=== PATIENT | male | born 1955 | race African-American/Black ===

== ENCOUNTER 2017-05-03 02:28 | Inpatient (IN) | payer MEDICARE ==
[~2017-05-03] VITALS: Ht 175.3 cm; Wt 90.7 kg
[~2017-05-03 02:28] MED LIST: AMOX-263 PO; ASPI81CH43 PO; BACIOIN4 TOP; CALCTAB25 PO; CITA-73 PO; CLON1TAB3 PO; DIVA500T7 PO; DOCU-80 PO; LACT10SO44 PO; METO50TA7 PO; PANT40TA2 PO; QUET200T44 PO; RISP0.5T45 PO; RIV15T PO; SACC250C PO; SIMV-8 PO; TRAZ100T2 PO
[2017-05-03 03:51] LABS: Basophils # (auto) 0 uL; Basophils % (auto) 0.3 % (0.0-2.0); Eosinophils # (auto) 0 uL; Eosinophils % (auto) 0.1 % (0.0-7.0); Hematocrit 44.3 % (41.0-53.0); Hemoglobin 14.9 g/dL (13.5-17.5); Lymphocytes # (auto) 0.9 uL; Lymphocytes % (auto) 10.7 % (10.0-50.0); Mean Corpuscular Hemoglobin 30.2 pg (28.0-32.0); Mean Corpuscular Hgb Conc. 33.8 g/dL (32.0-36.0); Mean Corpuscular Volume 89.5 fL (80.0-100.0); Monocytes # (auto) 0.8 uL; Monocytes % (auto) 9.9 % (0.0-12.0); Neutrophils # (auto) 6.4 uL; Nucleated Red Blood Cells % 0.1 %; Platelet Count (auto) 202 10^3/uL (140-450); Red Blood Cells 4.95 10^6/uL (4.5-5.90); Red Cell Distribution Width 13.7 % (11.8-14.3); White Blood Cell 8.2 10^3/uL (4.4-10.8)
[2017-05-03 04:01] LABS: INR 1.01 (0.9-1.15); Partial Thromboplastin Time 26.6 sec (22.64-33.71)
[2017-05-03 04:03] LABS: Albumin 3.4 g/dL (3.4-5.0); Anion Gap 4 (5-15); Calcium 9.3 mg/dL (8.5-10.1); Carbon Dioxide 34 mmol/L (21-32); Chloride 103 mmol/L (98-107); Glucose 90 mg/dL (74-106); Lipase 416 U/L (73-393); Potassium 4.8 mmol/L (3.5-5.1); Sodium 141 mmol/L (136-145)
[2017-05-03 04:12] LABS: Alanine Aminotransferase 23 U/L (16-61); Alkaline Phosphatase 74 U/L (45-117); Aspartate Aminotransferase 25 U/L (15-37); BUN/Creatinine Ratio 16.5; Bilirubin, Total 0.6 mg/dL (0.2-1.0); Blood Urea Nitrogen 17 mg/dL (7-18); GFR African American 94 mL/min; GFR Non-African American 78 mL/min; Total Protein 7.8 g/dL (6.4-8.2)
[2017-05-03 06:03] LABS: Urine Bacteria FEW /hpf (None Seen); Urine Blood Negative /uL (Negative); Urine Hyaline Cast FEW /lpf (0 - 2); Urine Specific Gravity 1.025 (1.001-1.035); Urine WBC 4 /hpf (0 - 3); Urine WBC Clumps PRESENT /hpf (None Seen)
[2017-05-03] MEDS ORDERED: GASTROGRAFIN 120 ML SOL ONE (08:40)
[2017-05-03] MEDS ORDERED: SODIUM CHLORIDE 0.9% 1,000 ML IV SCH (11:45)
[2017-05-03] MEDS ORDERED: ONDANSETRON HCL 4 MG/2 ML VIAL IV PRN (11:45)
[2017-05-03] MEDS ORDERED: MORPHINE SULFATE 4 MG/ML SYR/VIAL IV PRN (11:45)
[2017-05-03] MEDS ORDERED: PANTOPRAZOLE 40 MG/10 ML VIAL IV ONE ×2 (11:45→12:15)
[2017-05-03] MEDS ORDERED: traMADol HCL 50 MG TAB PO PRN (11:45)
[2017-05-03] MEDS ORDERED: LACTULOSE 20Gm/30ML SOLN PO ONE ×2 (11:45→12:15)
[2017-05-03] MEDS ORDERED: METOPROLOL SUCCINATE XL 50 MG TAB PO ONE (12:15)
[2017-05-03] MEDS ORDERED: ASPirin 81 mg TAB PO ONE (12:15)
[2017-05-03] MEDS ORDERED: CALCIUM W/VIT D (600MG/400IU) TAB PO ONE (12:15)
[2017-05-03] MEDS ORDERED: CITALOPRAM HYDROBR 20 MG TAB PO ONE (12:15)
[2017-05-03] MEDS: risperiDONE 1 MG TAB PO SCH ×2 (13:45→22:58)
[2017-05-03] MEDS: QUEtiapine FUMARATE 100 MG TAB PO SCH ×2 (13:45→22:58)
[2017-05-03] MEDS: SODIUM CHLORIDE 0.9% 1,000 ML IV SCH (14:30)
[2017-05-03] MEDS ORDERED: cefTRIAXone 1GM/10ml IVPUSH 10 ML IV ONE (14:30)
[2017-05-03] MEDS: RIVAROXABAN 20 MG TAB PO SCH (18:00)
[2017-05-03 22:00] VITALS: BP_SYST 109; BP_SYST 113; BP_DIAS 74; BP_DIAS 77
[2017-05-03] MEDS ORDERED: LACTULOSE 20Gm/30ML SOLN PO SCH (22:00)
[2017-05-03] MEDS: ATORVASTATIN 20 MG TAB PO SCH (22:58)
[2017-05-04] VITALS (8 sets, daily range): BP systolic 94–115; BP diastolic 54–89
[2017-05-04] MEDS: SODIUM CHLORIDE 0.9% 1,000 ML IV SCH (04:58)
[2017-05-04] MEDS: METOPROLOL SUCCINATE XL 50 MG TAB PO SCH (10:00)
[2017-05-04] MEDS ORDERED: PANTOPRAZOLE 40 MG/10 ML VIAL IV SCH (10:00)
[2017-05-04 10:22] LABS: Basophils # (auto) 0 uL; Basophils % (auto) 0.5 % (0.0-2.0); Eosinophils # (auto) 0.1 uL; Eosinophils % (auto) 1.5 % (0.0-7.0); Hemoglobin 11.9 g/dL (13.5-17.5); Lymphocytes # (auto) 1.5 uL; Lymphocytes % (auto) 20.5 % (10.0-50.0); Mean Corpuscular Hgb Conc. 33.1 g/dL (32.0-36.0); Mean Corpuscular Volume 90.4 fL (80.0-100.0); Monocytes # (auto) 0.6 uL; Monocytes % (auto) 8.6 % (0.0-12.0); Neutrophils % (auto) 68.9 % (37.0-80.0); Nucleated Red Blood Cells % 0.1 %; Platelet Count (auto) 155 10^3/uL (140-450); Red Blood Cells 3.98 10^6/uL (4.5-5.90); Red Cell Distribution Width 13.7 % (11.8-14.3); White Blood Cell 7.3 10^3/uL (4.4-10.8)
[2017-05-04 10:38] LABS: Albumin 2.7 g/dL (3.4-5.0); Calcium 8.3 mg/dL (8.5-10.1); Potassium 4.4 mmol/L (3.5-5.1)
[2017-05-04 10:40] LABS: BUN/Creatinine Ratio 20.7
[2017-05-04 10:42] LABS: Bilirubin, Total 0.3 mg/dL (0.2-1.0); Total Protein 6.2 g/dL (6.4-8.2)
[2017-05-04] MEDS: ASPirin 81 mg TAB PO SCH (11:21)
[2017-05-04] MEDS: cefTRIAXone 1GM/10ml IVPUSH 10 ML IV SCH (11:21)
[2017-05-04] MEDS: CITALOPRAM HYDROBR 20 MG TAB PO SCH (11:21)
[2017-05-04] MEDS: risperiDONE 1 MG TAB PO SCH ×2 (11:22→22:00)
[2017-05-04] MEDS: CALCIUM W/VIT D (600MG/400IU) TAB PO SCH (11:22)
[2017-05-04] MEDS: RIVAROXABAN 20 MG TAB PO SCH (17:54)
[2017-05-04] MEDS: QUEtiapine FUMARATE 100 MG TAB PO SCH (22:00)
[2017-05-04] MEDS: ATORVASTATIN 20 MG TAB PO SCH (22:00)
[2017-05-04] MEDS: LACTULOSE 20Gm/30ML SOLN PO SCH (22:00)
[2017-05-05] VITALS (7 sets, daily range): BP systolic 109–155; BP diastolic 53–95
[2017-05-05] MEDS: LACTULOSE 20Gm/30ML SOLN PO SCH ×2 (10:00→22:00)
[2017-05-05] MEDS ORDERED: PANTOPRAZOLE 40 MG TAB PO SCH (10:00)
[2017-05-05] MEDS: cefTRIAXone 1GM/10ml IVPUSH 10 ML IV SCH (10:31)
[2017-05-05] MEDS: CALCIUM W/VIT D (600MG/400IU) TAB PO SCH (10:32)
[2017-05-05] MEDS: CITALOPRAM HYDROBR 20 MG TAB PO SCH (10:32)
[2017-05-05] MEDS: METOPROLOL SUCCINATE XL 50 MG TAB PO SCH (10:32)
[2017-05-05] MEDS: risperiDONE 1 MG TAB PO SCH ×2 (10:33→21:29)
[2017-05-05] MEDS: ASPirin 81 mg TAB PO SCH (17:43)
[2017-05-05] MEDS: RIVAROXABAN 20 MG TAB PO SCH (18:47)
[2017-05-05] MEDS: QUEtiapine FUMARATE 100 MG TAB PO SCH (21:28)
[2017-05-05] MEDS: ATORVASTATIN 20 MG TAB PO SCH (21:29)
== END 2017-05-05 21:55 | disposition home or self-care (01) | DRG 393 ==
LOC: EDBD 02:28 → ER 02:28 → OVERFLOW 02:29 → WEST WING 17:52
PROVIDERS: ADMIT Internal Medicine; ATTEND Internal Medicine
DX: K42.0 Umbilical hernia with obstruction, without gangrene (principal); K85.91 Acute pancreatitis with uninfected necrosis, unspecified; I48.91 Unspecified atrial fibrillation; I11.0 Hypertensive heart disease with heart failure; F03.90 Unspecified dementia, unspecified severity, without behavioral disturbance, psychotic disturbance, mood disturbance, and anxiety; I50.32 Chronic diastolic (congestive) heart failure; I25.2 Old myocardial infarction; G40.909 Epilepsy, unspecified, not intractable, without status epilepticus; K56.41 Fecal impaction; J44.9 Chronic obstructive pulmonary disease, unspecified; K21.9 Gastro-esophageal reflux disease without esophagitis; Z79.899 Other long term (current) drug therapy; Z86.73 Personal history of transient ischemic attack (TIA), and cerebral infarction without residual deficits; Z79.82 Long term (current) use of aspirin
CPT/HCPCS: 36415; 71045; 74176; 74250; 80053; 80164; 81001; 82150; 83690; 83735; 84484; 85025; 85610; 85730; 87081; 87086; 93005; 96374; 96375; 97163; C9113

== ENCOUNTER 2017-09-05 10:30 | Inpatient (IN) | payer MEDICARE ==
[~2017-09-05] VITALS: Ht 177.8 cm; Wt 92.9 kg
[~2017-09-05 10:30] MED LIST changes: -AMOX-263 PO; -SACC250C PO
[2017-09-05 12:30] LABS: Basophils # (auto) 0 uL; Basophils % (auto) 0.2 % (0.0-2.0); Eosinophils # (auto) 0 uL; Eosinophils % (auto) 0.1 % (0.0-7.0); Hemoglobin 14.2 g/dL (13.5-17.5); Lymphocytes # (auto) 0.6 uL; Lymphocytes % (auto) 7.4 % (10.0-50.0); Mean Corpuscular Hemoglobin 30.9 pg (28.0-32.0); Mean Corpuscular Hgb Conc. 33.8 g/dL (32.0-36.0); Mean Corpuscular Volume 91.4 fL (80.0-100.0); Monocytes # (auto) 0.4 uL; Monocytes % (auto) 4.5 % (0.0-12.0); Neutrophils # (auto) 7.1 uL; Neutrophils % (auto) 87.8 % (37.0-80.0); Platelet Count (auto) 153 10^3/uL (140-450); Red Cell Distribution Width 13.3 % (11.8-14.3); White Blood Cell 8.1 10^3/uL (4.4-10.8)
[2017-09-05 13:15] LABS: Albumin 3.9 g/dL (3.4-5.0); BUN/Creatinine Ratio 18.1; Bilirubin, Total 0.5 mg/dL (0.2-1.0); Calcium 9.6 mg/dL (8.5-10.1); Magnesium 2.2 mg/dL (1.6-2.6); Potassium 4.3 mmol/L (3.5-5.1); Total Protein 8.3 g/dL (6.4-8.2)
[2017-09-05] MEDS ORDERED: LACTULOSE 20Gm/30ML SOLN PO PRN (13:30)
[2017-09-05] MEDS ORDERED: LACTULOSE 20Gm/30ML SOLN PO ONE (13:30)
[2017-09-05] MEDS ORDERED: GASTROGRAFIN 120 ML SOL ONE (13:43)
[2017-09-05] MEDS ORDERED: MORPHINE SULF INJ 2 MG/ML SYRINGE 1ML IV PRN (13:45)
[2017-09-05] MEDS ORDERED: TEMAZEPAM 15 MG CAP PO PRN (13:45)
[2017-09-05] MEDS ORDERED: cloNIDine HCL 0.1 MG TAB PO PRN (13:45)
[2017-09-05] MEDS ORDERED: NITROGLYCERIN 0.4 MG SL TAB SL PRN (13:45)
[2017-09-05] MEDS ORDERED: HYDROcodone-ACET 5/325MG TAB PO PRN (13:45)
[2017-09-05] MEDS ORDERED: DOCUSATE SOD 100 MG CAP PO PRN (13:45)
[2017-09-05] MEDS ORDERED: ONDANSETRON HCL 4 MG/2 ML VIAL IV PRN (13:45)
[2017-09-05] MEDS ORDERED: clonazePAM 0.5 MG TAB PO PRN (13:45)
[2017-09-05] MEDS ORDERED: ACETAMINOPHEN 325 MG TAB PO PRN (13:45)
[2017-09-05] MEDS ORDERED: LORazepam 2MG/ML-1ML VIAL IV PRN (14:00)
[2017-09-05] MEDS: SODIUM CHLOR 0.9% PF (SALINE LOCK) 10ML VIAL/SYR IV SCH ×2 (14:05→22:00)
[2017-09-05] MEDS ORDERED: RIVAROXABAN 15 MG TAB PO SCH (18:00)
[2017-09-05] MEDS: risperiDONE 1 MG TAB PO SCH (22:36)
[2017-09-05] MEDS: QUEtiapine FUMARATE 100 MG TAB PO SCH (22:36)
[2017-09-05] MEDS: ATORVASTATIN 20 MG TAB PO SCH (22:37)
[2017-09-05] MEDS: FAMOTIDINE 20 MG TAB PO SCH (22:37)
[2017-09-05] MEDS: traZODone HCL 50 MG TAB PO SCH (22:37)
[2017-09-05] MEDS: PANTOPRAZOLE 40 MG TAB PO SCH (22:37)
[2017-09-06 05:11] VITALS: BP 138/92
[2017-09-06] MEDS: SODIUM CHLOR 0.9% PF (SALINE LOCK) 10ML VIAL/SYR IV SCH ×3 (06:07→22:10)
[2017-09-06] MEDS: VALPROIC ACID 250 MG/5 ML ORAL SOLN GT SCH ×3 (06:48→22:10)
[2017-09-06 07:48] LABS: Basophils # (auto) 0 uL; Basophils % (auto) 0.2 % (0.0-2.0); Eosinophils # (auto) 0 uL; Eosinophils % (auto) 0.4 % (0.0-7.0); Hematocrit 38.4 % (41.0-53.0); Lymphocytes # (auto) 1.6 uL; Lymphocytes % (auto) 19.7 % (10.0-50.0); Mean Corpuscular Volume 91.3 fL (80.0-100.0); Monocytes # (auto) 0.8 uL; Monocytes % (auto) 9.7 % (0.0-12.0); Neutrophils # (auto) 5.7 uL; Nucleated Red Blood Cells % 0.1 %; Platelet Count (auto) 142 10^3/uL (140-450); Red Blood Cells 4.21 10^6/uL (4.5-5.90); Red Cell Distribution Width 13.3 % (11.8-14.3); White Blood Cell 8.1 10^3/uL (4.4-10.8)
[2017-09-06 08:05] LABS: Albumin 3.3 g/dL (3.4-5.0); BUN/Creatinine Ratio 21.9; Bilirubin, Total 0.5 mg/dL (0.2-1.0); Potassium 4.1 mmol/L (3.5-5.1); Total Protein 7.1 g/dL (6.4-8.2)
[2017-09-06 08:45] VITALS: BP 126/92
[2017-09-06] MEDS: METOPROLOL SUCCINATE XL 50 MG TAB PO SCH (09:44)
[2017-09-06] MEDS: PANTOPRAZOLE 40 MG TAB PO SCH ×2 (09:44→22:11)
[2017-09-06] MEDS: risperiDONE 1 MG TAB PO SCH ×2 (09:45→17:24)
[2017-09-06] MEDS: CALCIUM W/VIT D (600MG/400IU) TAB PO SCH (09:45)
[2017-09-06] MEDS: FAMOTIDINE 20 MG TAB PO SCH ×2 (09:45→22:11)
[2017-09-06] MEDS: CITALOPRAM HYDROBR 20 MG TAB PO SCH (09:45)
[2017-09-06] MEDS: ASPirin-EC 81 mg tab PO SCH (09:45)
[2017-09-06] MEDS: ENOXAPARIN SOD 40 MG/0.4 ML SYRINGE SC SCH (09:46)
[2017-09-06] MEDS: MULTIPLE VITAMIN TAB PO SCH (09:46)
[2017-09-06 13:05] VITALS: BP 129/81
[2017-09-06 17:12] VITALS: BP 122/74
[2017-09-06 22:00] VITALS: BP 134/73
[2017-09-06] MEDS: traZODone HCL 50 MG TAB PO SCH (22:10)
[2017-09-06] MEDS: ATORVASTATIN 20 MG TAB PO SCH (22:11)
[2017-09-06] MEDS: QUEtiapine FUMARATE 100 MG TAB PO SCH (22:11)
[2017-09-07 05:10] VITALS: BP 117/64
[2017-09-07] MEDS: SODIUM CHLOR 0.9% PF (SALINE LOCK) 10ML VIAL/SYR IV SCH ×2 (05:58→14:26)
[2017-09-07] MEDS: VALPROIC ACID 250 MG/5 ML ORAL SOLN GT SCH ×2 (05:58→14:24)
[2017-09-07 08:00] VITALS: BP 121/77
[2017-09-07 08:23] VITALS: BP 121/77
[2017-09-07] MEDS: MULTIPLE VITAMIN TAB PO SCH (10:05)
[2017-09-07] MEDS: METOPROLOL SUCCINATE XL 50 MG TAB PO SCH (10:05)
[2017-09-07] MEDS: PANTOPRAZOLE 40 MG TAB PO SCH (10:05)
[2017-09-07] MEDS: CALCIUM W/VIT D (600MG/400IU) TAB PO SCH (10:05)
[2017-09-07] MEDS: FAMOTIDINE 20 MG TAB PO SCH (10:05)
[2017-09-07] MEDS: CITALOPRAM HYDROBR 20 MG TAB PO SCH (10:06)
[2017-09-07] MEDS: risperiDONE 1 MG TAB PO SCH (10:07)
[2017-09-07] MEDS: ASPirin-EC 81 mg tab PO SCH (10:08)
[2017-09-07] MEDS: ENOXAPARIN SOD 40 MG/0.4 ML SYRINGE SC SCH (10:09)
[2017-09-07 12:39] VITALS: BP 100/68
[2017-09-07 15:42] VITALS: BP 121/77
[2017-09-07 17:12] VITALS: BP 144/88
== END 2017-09-07 19:05 | DRG 392 ==
LOC: ER 10:30 → TELE 10:31 → TELE-WESTW 18:39
PROVIDERS: ADMIT Internal Medicine; ATTEND Family Medicine
DX: K59.00 Constipation, unspecified (principal); K42.0 Umbilical hernia with obstruction, without gangrene; I48.92 Unspecified atrial flutter; I69.354 Hemiplegia and hemiparesis following cerebral infarction affecting left non-dominant side; K56.609 Unspecified intestinal obstruction, unspecified as to partial versus complete obstruction; I48.0 Paroxysmal atrial fibrillation; N18.2 Chronic kidney disease, stage 2 (mild); I12.9 Hypertensive chronic kidney disease with stage 1 through stage 4 chronic kidney disease, or unspecified chronic kidney disease; E78.00 Pure hypercholesterolemia, unspecified; F03.90 Unspecified dementia, unspecified severity, without behavioral disturbance, psychotic disturbance, mood disturbance, and anxiety; F32.9 Major depressive disorder, single episode, unspecified; G40.909 Epilepsy, unspecified, not intractable, without status epilepticus; I25.10 Atherosclerotic heart disease of native coronary artery without angina pectoris; I48.91 Unspecified atrial fibrillation; J44.9 Chronic obstructive pulmonary disease, unspecified; I70.8 Atherosclerosis of other arteries; I08.0 Rheumatic disorders of both mitral and aortic valves; Z90.89 Acquired absence of other organs; I25.2 Old myocardial infarction; Z90.49 Acquired absence of other specified parts of digestive tract; Z93.0 Tracheostomy status
CPT/HCPCS: 36415; 74176; 74250; 80053; 82150; 83690; 83735; 85025; 93005; 93306; 94761; 97530; J2405

== ENCOUNTER 2018-10-27 14:46 | Inpatient (IN) | payer MEDICARE ==
[~2018-10-27] VITALS: Ht 182.9 cm; Wt 100.7 kg
[~2018-10-27 14:46] MED LIST changes: -BACIOIN4 TOP; +CLON1TAB10 PO; -CLON1TAB3 PO; +DIVA1TAB59 PO; -DIVA500T7 PO; -METO50TA7 PO; -RIV15T PO
[2018-10-27] MEDS ORDERED: SODIUM CHLORIDE 0.9% 500 ML IVB ONE (15:02)
[2018-10-27 15:46] LABS: Basophils # (auto) 0 uL; Basophils % (auto) 0.2 % (0.0-2.0); Eosinophils # (auto) 0 uL; Eosinophils % (auto) 0.3 % (0.0-7.0); Hematocrit 47.3 % (41.0-53.0); Hemoglobin 15.4 g/dL (13.5-17.5); Mean Corpuscular Hemoglobin 30.3 pg (28.0-32.0); Mean Corpuscular Hgb Conc. 32.6 g/dL (32.0-36.0); Mean Corpuscular Volume 92.8 fL (80.0-100.0); Monocytes # (auto) 0.8 uL; Neutrophils % (auto) 76.5 % (37.0-80.0); Platelet Count (auto) 154 10^3/uL (140-450); Red Blood Cells 5.09 10^6/uL (4.5-5.90); Red Cell Distribution Width 13.4 % (11.8-14.3); White Blood Cell 7.9 10^3/uL (4.4-10.8)
[2018-10-27 15:52] LABS: Alanine Aminotransferase 15 U/L (16-61); Albumin 3.4 g/dL (3.4-5.0); Anion Gap 5 (5-15); Blood Alcohol < 3.0 mg/dL (0-5); Blood Urea Nitrogen 18 mg/dL (7-18); Calcium 8.8 mg/dL (8.5-10.1); Carbon Dioxide 30 mmol/L (21-32); Chloride 107 mmol/L (98-107); Glucose 108 mg/dL (74-106); Magnesium 2.5 mg/dL (1.6-2.6); Potassium 3.6 mmol/L (3.5-5.1); Sodium 142 mmol/L (136-145)
[2018-10-27 15:57] LABS: Alkaline Phosphatase 73 U/L (45-117); Aspartate Aminotransferase 18 U/L (15-37); BUN/Creatinine Ratio 16.1; Bilirubin, Total 0.5 mg/dL (0.2-1.0); GFR African American 85 mL/min; GFR Non-African American 70 mL/min
[2018-10-27 16:00] LABS: INR 1.02 (0.9-1.15); Partial Thromboplastin Time 29.1 sec (23.64-32.05)
[2018-10-27] MEDS ORDERED: ACETAMINOPHEN 500 MG TAB PO PRN (17:00)
[2018-10-27] MEDS ORDERED: BISACODYL 10 MG RECT SUPP PR ONE (17:00)
[2018-10-27] MEDS ORDERED: PROMETHAZINE HCL 25 MG/ML 1ML IV PRN (17:00)
[2018-10-27] MEDS ORDERED: NITROGLYCERIN 0.4 MG SL TAB SL PRN (17:00)
[2018-10-27] MEDS ORDERED: TEMAZEPAM 15 MG CAP PO PRN (17:00)
[2018-10-27] MEDS ORDERED: LABETALOL HCL 5 MG/ML ML 20ML VIAL IV PRN (17:00)
[2018-10-27] MEDS ORDERED: BISACODYL 10 MG RECT SUPP PR PRN (17:00)
[2018-10-27] MEDS ORDERED: MORPHINE SULF INJ 2 MG/ML SYRINGE 1ML IV PRN (17:00)
[2018-10-27 17:30] VITALS: BP 147/85
--- NOTE | 2018-10-27 17:30 | NUR ---
Telemetry admit from ER LIZZETH PENALOZA admitted to Telemetry unit after SBAR received. Patient oriented to MARYANN VYAS RN primary RN, unit, room, bed, and unit policies regarding patient care and visiting hours. Patient now on continuous telemetry monitoring, tele box # 11 and telemetry reading on arrival to unit is sinus rhythm 91. Patient placed on bedside oxygen, 3L NC, respirations even and unlabored. Patient has a IV 20g to the right AC. Patient is unable to answer admission questions, there is no health care facilities inspector at bedside. Bed in low and locked position,call light within reach. Bed alarm on for safety. Will continue to monitor Q1 hour and PRN.
--- NOTE | 2018-10-27 17:30 | NUR ---
Discharge Discharge instructions given as ordered. Encourage to follow up with PMD as instructed. All questions and concerns addressed. Patient verbalized understanding. Medication reconciliation form completed and copy given to patient. Home medications held in Pharmacy returned to patient, and needed vaccines given. IV removed with catheter intact, pressure dressing applied, ruano catheter removed. Telemetry unit returned to ICU. Patient taken to vehicle via wheelchair with all personal belongings, accompanied by staff and family member. No distress noted at time of departure. Addendum: 10/27/18 at 1834 by MARYANN VYAS RN RN wrong patient
[2018-10-27 17:51] VITALS: BP 147/85
[2018-10-27] MEDS: SODIUM CHLORIDE 0.9% 1,000 ML IV SCH (18:01)
--- NOTE | 2018-10-27 19:15 | NUR ---
Closing Note Report given to weigh and charge worker RN. No signs or symptoms of distress noted at this time. Bed alarm on for safety.
--- NOTE | 2018-10-27 19:15 | NUR ---
Paged and left message to Dr. Grissom for diet order. Awaiting call back/ orders.
--- NOTE | 2018-10-27 19:31 | NUR ---
Received call back from Dr. Grissom to transfer service to Dr. Good Elam. Per Dr. Grissom, will put in Diet order.
--- NOTE | 2018-10-27 19:45 | NUR ---
Patient hungry, provided with sandwich, [place] and juice. Patient requires minimum assistance with meals unable to feed self safely.
--- NOTE | 2018-10-27 20:00 | NUR ---
Family arrived, set up a password and completed admission information. Per mother, will bring the home medication list tomorrow.
[2018-10-27 21:41] VITALS: BP 128/98
[2018-10-27] MEDS: FAMOTIDINE 20 MG TAB PO SCH (21:55)
--- NOTE | 2018-10-27 23:50 | NUR ---
Dr. Pan at the nurses station with new orders for UA straight cath sample and pt on puree textured diet. All orders noted and carried out. Will continue to monitor.
--- NOTE | 2018-10-28 00:27 | NUR ---
UA sample obtained via straight cath, patient tolerated procedure with minimal discomfort. Sent sample to lab via bullet. Will continue to monitor.
--- NOTE | 2018-10-28 00:30 | NUR ---
Per family, patient lives in a board and care. Will obtain MRSA swab per protocol.
[2018-10-28 01:41] LABS: Urine Bacteria NONE SEEN /hpf (None Seen); Urine Blood Negative /uL (Negative); Urine Specific Gravity 1.027 (1.001-1.035); Urine WBC 14 /hpf (0 - 3)
[2018-10-28 01:54] LABS: Alcohol, Urine < 3.0 mg/dL (0-5); Amphetamine Screen, Urine NEGATIVE (NEGATIVE); Barbiturate Scree,Urine NEGATIVE (NEGATIVE); Benzodiazephine Screen, Urine POSITIVE (NEGATIVE); Cannabinoid Screen, Urine NEGATIVE (NEGATIVE); Cocaine Screen, Urine NEGATIVE (NEGATIVE); Opiate Scree,Urine NEGATIVE (NEGATIVE); Phencyclidine Screen, Urine NEGATIVE (NEGATIVE)
[2018-10-28] MEDS: SODIUM CHLORIDE 0.9% 1,000 ML IV SCH (02:59)
--- NOTE | 2018-10-28 05:16 | NUR ---
MRSA swab obtained sent to lab via bullet.
[2018-10-28 05:22] VITALS: BP 115/70
--- NOTE | 2018-10-28 07:29 | NUR ---
Endorsed care to AM shift RN to info Dr. Good Elam re transfer of service.
[2018-10-28 07:47] LABS: Basophils # (auto) 0 uL; Basophils % (auto) 0.5 % (0.0-2.0); Eosinophils # (auto) 0.1 uL; Eosinophils % (auto) 1.5 % (0.0-7.0); Hemoglobin 12.7 g/dL (13.5-17.5); Lymphocytes % (auto) 22.9 % (10.0-50.0); Mean Corpuscular Hgb Conc. 32.6 g/dL (32.0-36.0); Mean Corpuscular Volume 92.3 fL (80.0-100.0); Monocytes # (auto) 1.1 uL; Monocytes % (auto) 12.3 % (0.0-12.0); Neutrophils # (auto) 5.4 uL; Neutrophils % (auto) 62.8 % (37.0-80.0); Platelet Count (auto) 124 10^3/uL (140-450); Red Blood Cells 4.22 10^6/uL (4.5-5.90); Red Cell Distribution Width 13.5 % (11.8-14.3); White Blood Cell 8.7 10^3/uL (4.4-10.8)
[2018-10-28 08:06] LABS: Albumin 2.7 g/dL (3.4-5.0); Calcium 8.2 mg/dL (8.5-10.1); Potassium 3.7 mmol/L (3.5-5.1)
[2018-10-28 08:09] LABS: BUN/Creatinine Ratio 14.9; Bilirubin, Total 0.6 mg/dL (0.2-1.0); Total Protein 6.5 g/dL (6.4-8.2)
[2018-10-28 08:44] VITALS: BP 114/83
[2018-10-28] MEDS: LACTULOSE 20Gm/30ML SOLN PO SCH (10:21)
[2018-10-28] MEDS: FAMOTIDINE 20 MG TAB PO SCH ×2 (10:21→22:04)
[2018-10-28] MEDS: ASPirin 81 mg TAB PO SCH (10:21)
[2018-10-28] MEDS ORDERED: clonazePAM 0.5 MG TAB PO PRN (12:45)
[2018-10-28] MEDS ORDERED: LEVOFLOXACIN 500MG 100 ML IV ONE (12:55)
[2018-10-28] MEDS: DOCUSATE SOD 100 MG CAP PO SCH ×2 (13:05→22:00)
[2018-10-28] MEDS: PANTOPRAZOLE 40 MG TAB PO SCH ×2 (13:06→22:04)
--- NOTE | 2018-10-28 13:46 | NUR ---
Ruano catheter insertion Patient assessed and determined to be in need of ruano catheter. Order obtained from MD. Patient educated on catheter and reason for insertion. All questions answered. Ruano catheter 16 guage Khmer inserted with clean sterile technique. Patient tolerated well.
[2018-10-28] MEDS: SOD CHL 0.45% 1,000 ML IV SCH (14:00)
[2018-10-28] MEDS: Ensure Pudding Vanilla 4 oz Cup PO SCH (15:00)
--- NOTE | 2018-10-28 15:00 | NUR ---
IV removal IV to right AC DC'd with sterile technique, due to location, catheter fully intact. Pressure dressing applied to site. Patient tolerated procedure well. IV insertion IV access obtained, via clean sterile technique by inserting 22 gauge catheter at right forearm after one attempt. IV secured properly. No trauma to site. Patient tolerated procedure well.
[2018-10-28 16:56] VITALS: BP 111/75
--- NOTE | 2018-10-28 18:00 | NUR ---
Pt oriented to self only. Pt able to state name, birthday, and that he's in no hospital. Pt is cooperative with care rendered, making no attempts to get out of bed or pull at IV or ruano. Pt is able to feed self with standby assistance. Pt showing no difficulty taking PO medications. Schedule Colace held due to frequent loose stools during this shift. Pt denies pain or discomfort, and none apparent.
[2018-10-28 22:00] VITALS: BP 129/89
[2018-10-28] MEDS: ATORVASTATIN 20 MG TAB PO SCH (22:01)
[2018-10-28] MEDS: QUEtiapine FUMARATE 100 MG TAB PO SCH (22:01)
[2018-10-28] MEDS: risperiDONE 1 MG TAB PO SCH (22:04)
--- NOTE | 2018-10-28 23:33 | NUR ---
Bowel movement Patient with one large amount of soft brown bowel movement with strong odor. Provided patient with good perineal and skin care. Will continue to monitor.
[2018-10-29 05:00] VITALS: BP 111/72
[2018-10-29] MEDS: SOD CHL 0.45% 1,000 ML IV SCH ×2 (06:38→16:39)
--- NOTE | 2018-10-29 07:38 | NUR ---
Opening Shift Note Assumed care of patient, awake and alert. No S/S of distress/SOB or pain. Instructed on POC and to call for assist PRN, will continue to monitor for changes Q1hr and PRN. Side rails up x2. Bed locked in lowest position. Call light within reach. Bed alarm on for safety. Addendum: 10/30/18 at 0740 by GAB BRIONES RN RN done at 1900
[2018-10-29 09:00] VITALS: BP 128/92
--- NOTE | 2018-10-29 09:00 | NUR ---
Opening Shift Note Assumed care of patient, awake, alert, and oriented to self only. Pt denies pain or discomfort, and none apparent. Pt instructed on POC and to call for assist PRN, will continue to monitor for changes Q1hr and PRN.
[2018-10-29] MEDS: LEVOFLOXACIN 500MG 100 ML IV SCH (09:50)
[2018-10-29] MEDS: ASPirin 81 mg TAB PO SCH (09:51)
[2018-10-29] MEDS: CITALOPRAM HYDROBR 20 MG TAB PO SCH (09:51)
[2018-10-29] MEDS: risperiDONE 1 MG TAB PO SCH ×2 (09:51→21:52)
[2018-10-29] MEDS: PANTOPRAZOLE 40 MG TAB PO SCH ×2 (09:51→21:51)
[2018-10-29] MEDS: Ensure Pudding Vanilla 4 oz Cup PO SCH ×2 (09:52→16:39)
[2018-10-29] MEDS: LACTULOSE 20Gm/30ML SOLN PO SCH ×2 (09:53)
[2018-10-29] MEDS: DOCUSATE SOD 100 MG CAP PO SCH ×2 (09:53→21:52)
[2018-10-29] MEDS: CALCIUM W/VIT D (600MG/400IU) TAB PO SCH (09:53)
[2018-10-29] MEDS: FAMOTIDINE 20 MG TAB PO SCH ×2 (09:54→21:51)
[2018-10-29 13:00] VITALS: BP 122/77
[2018-10-29 17:00] VITALS: BP 140/81
--- NOTE | 2018-10-29 18:00 | NUR ---
Pt showing no change from initial assessment. Pt incontinent of loose stools, times 3, during this shift. Dr. Pan at bedside and informed of pt's telemetry reading of 40's - 50's throughout most of this shift. at bedside at this time.
[2018-10-29 21:00] VITALS: BP 115/73
[2018-10-29] MEDS: traZODone HCL 50 MG TAB PO SCH (21:51)
[2018-10-29] MEDS: QUEtiapine FUMARATE 100 MG TAB PO SCH (21:52)
[2018-10-29] MEDS: ATORVASTATIN 20 MG TAB PO SCH (21:52)
[2018-10-30 04:30] VITALS: BP 105/76
[2018-10-30] MEDS: SOD CHL 0.45% 1,000 ML IV SCH ×2 (05:40→18:32)
--- NOTE | 2018-10-30 07:30 | NUR ---
OPENING SHIFT NOTE RECEIVED REPORT FROM NIGHT NURSE, ASSUMED PATIENT CARE. PATIENT IS A&OX4 WITH NO C/O PAIN OR DISTRESS AT THIS TIME. PATIENT BED IN LOW POSITION, BRAKES APPLIED, BED RAILS UP X2 AND CALL LIGHT WITHIN REACH. EDUCATED PATIENT ON POC OF CALL LIGHT USE PRN, PATIENT VERBALIZED UNDERSTANDING. NO CURRENT S/S OF DISTRESS NOTED, CONTINUING TO MONITOR Q1 HR AND PRN
--- NOTE | 2018-10-30 07:40 | NUR ---
Endorsed care to day shift RN. No changes in condition from the start of shift. No distress noted.
[2018-10-30 09:00] VITALS: BP 112/76
[2018-10-30] MEDS: LEVOFLOXACIN 500MG 100 ML IV SCH (09:12)
[2018-10-30] MEDS: ASPirin 81 mg TAB PO SCH (09:14)
[2018-10-30] MEDS: DOCUSATE SOD 100 MG CAP PO SCH ×2 (09:15→22:17)
[2018-10-30] MEDS: Ensure Pudding Vanilla 4 oz Cup PO SCH ×2 (09:16→15:31)
[2018-10-30] MEDS: CALCIUM W/VIT D (600MG/400IU) TAB PO SCH (09:16)
[2018-10-30] MEDS: FAMOTIDINE 20 MG TAB PO SCH ×2 (09:17→22:18)
[2018-10-30] MEDS: risperiDONE 1 MG TAB PO SCH ×2 (09:17→22:19)
[2018-10-30] MEDS: CITALOPRAM HYDROBR 20 MG TAB PO SCH (09:18)
[2018-10-30] MEDS: PANTOPRAZOLE 40 MG TAB PO SCH ×2 (09:19→22:19)
[2018-10-30] MEDS: LACTULOSE 20Gm/30ML SOLN PO SCH ×2 (09:21→09:22)
--- NOTE | 2018-10-30 09:30 | NUR ---
PATIENT BOWEL MOVEMENT PATIENT HAD LARGE, BROWN, LIQUID LIKE BOWEL MOVEMENT IN BED. PATIENT WAS CLEANED BY NURSE AND AID, GIVEN A COMPLETE BED BATH, AND LINENS CHANGED. BARRIER CREAM APPLIED
[2018-10-30 13:11] VITALS: BP 131/73
[2018-10-30 17:00] VITALS: BP 142/85
--- NOTE | 2018-10-30 19:40 | NUR ---
Opening Shift Note Assumed care of patient, awake and alert. Patient has history of CVA with residual. Bed alarm on at all times, and room next to nurse's station for patient safety. No S/S of distress/SOB or pain. Instructed on POC and to call for assist PRN, will continue to monitor for changes Q1hr and PRN.
[2018-10-30 22:00] VITALS: BP 142/92
[2018-10-30] MEDS: traZODone HCL 50 MG TAB PO SCH (22:17)
[2018-10-30] MEDS: ATORVASTATIN 20 MG TAB PO SCH (22:18)
[2018-10-30] MEDS: QUEtiapine FUMARATE 100 MG TAB PO SCH (22:19)
[2018-10-31 06:56] LABS: BUN/Creatinine Ratio 15.9; Calcium 8.3 mg/dL (8.5-10.1); Potassium 3.9 mmol/L (3.5-5.1)
[2018-10-31] MEDS: SOD CHL 0.45% 1,000 ML IV SCH (07:29)
--- NOTE | 2018-10-31 08:00 | NUR ---
Opening Shift Note Assumed care of patient, awake and alert. No S/S of distress/SOB or pain. Patient speech is a little garbled and sometimes hard to understand. Instructed on POC and to call for assist PRN, will continue to monitor for changes Q1hr and PRN.
[2018-10-31 09:00] VITALS: BP 123/75
[2018-10-31] MEDS: LEVOFLOXACIN 500MG 100 ML IV SCH (09:23)
[2018-10-31] MEDS: DOCUSATE SOD 100 MG CAP PO SCH ×2 (09:24→21:15)
[2018-10-31] MEDS: CALCIUM W/VIT D (600MG/400IU) TAB PO SCH (09:24)
[2018-10-31] MEDS: ASPirin 81 mg TAB PO SCH (09:24)
[2018-10-31] MEDS: risperiDONE 1 MG TAB PO SCH ×2 (09:24→21:16)
[2018-10-31] MEDS: CITALOPRAM HYDROBR 20 MG TAB PO SCH (09:24)
[2018-10-31] MEDS: PANTOPRAZOLE 40 MG TAB PO SCH ×2 (09:24→21:17)
[2018-10-31] MEDS: FAMOTIDINE 20 MG TAB PO SCH ×2 (09:24→21:17)
[2018-10-31] MEDS: Ensure Pudding Vanilla 4 oz Cup PO SCH ×2 (09:24→15:47)
[2018-10-31] MEDS: LACTULOSE 20Gm/30ML SOLN PO SCH ×2 (09:25)
--- NOTE | 2018-10-31 10:30 | NUR ---
Held Lactulose Held due to report of diarrhea the past couple of days. material handler 1st shift nurse reported that the stool was soft overnight, but not liquid.
--- NOTE | 2018-10-31 12:25 | NUR ---
Nutrition Assessment Notes please see attached link for complete assessment Est. Needs ABGely [id number] kcal (23-25 kcal/kgBW), 91-100 gms pro (1.0-1.1 gms/kgBW). Will continue to monitor pertinent labs and reassess nutrient need prn Addendum: 10/31/18 at [address] Amended: Links added.
[2018-10-31 17:00] VITALS: BP 155/82
--- NOTE | 2018-10-31 19:35 | NUR ---
Opening Shift Note Assumed care of patient, awake and alert. Patient has history of CVA with left sided weakness. Bed alarm on at all times, and room next to nurse's station for patient safety. No S/S of distress/SOB or pain. Instructed on POC and to call for assist PRN, will continue to monitor for changes Q1hr and PRN.
[2018-10-31] MEDS: QUEtiapine FUMARATE 100 MG TAB PO SCH (21:16)
[2018-10-31] MEDS: ATORVASTATIN 20 MG TAB PO SCH (21:16)
[2018-10-31] MEDS: traZODone HCL 50 MG TAB PO SCH (21:16)
[2018-10-31 22:00] VITALS: BP 121/72
[2018-11-01] MEDS: SOD CHL 0.45% 1,000 ML IV SCH (01:04)
[2018-11-01 05:00] VITALS: BP 136/71
[2018-11-01] MEDS: Ensure Pudding Vanilla 4 oz Cup PO SCH ×2 (09:10→14:00)
[2018-11-01 09:45] VITALS: BP 131/83
--- NOTE | 2018-11-01 10:00 | NUR ---
PT COOPERATIVE WITH INSTRUCTIONS BUT IS NONVERBAL OR GARBLED. OPENED MOUTH READILY FOR MEDICATIONS, NO DYSPHAGIA. ASSISTED WITH TURNING AND ALL CARES.
[2018-11-01] MEDS: LEVOFLOXACIN 500MG 100 ML IV SCH (10:20)
[2018-11-01] MEDS: ASPirin 81 mg TAB PO SCH (10:49)
[2018-11-01] MEDS: LACTULOSE 20Gm/30ML SOLN PO SCH (10:49)
[2018-11-01] MEDS: CITALOPRAM HYDROBR 20 MG TAB PO SCH (10:49)
[2018-11-01] MEDS: DOCUSATE SOD 100 MG CAP PO SCH (10:49)
[2018-11-01] MEDS: CALCIUM W/VIT D (600MG/400IU) TAB PO SCH (10:49)
[2018-11-01] MEDS: FAMOTIDINE 20 MG TAB PO SCH (10:50)
[2018-11-01] MEDS: PANTOPRAZOLE 40 MG TAB PO SCH (10:50)
[2018-11-01] MEDS: risperiDONE 1 MG TAB PO SCH (10:50)
--- NOTE | 2018-11-01 12:53 | NUR ---
DISCHARGE PLAN NUMBER ON CHART INCORRECT. I SPOKE WITH PT BROTHER MARIAELENA AT [phone] INFORMED OF DISCHARGE AND PROVIDED CORRECT PHONE NUMBER OF PT RESIDENCE [facility] [phone]. MARIAELENA STATES DOLL SHOULD PROVIDE TRANSPORTATION HOME. UNABLE TO GIVE RESIDENCE ADDRESS. MESSAGE LEFT FOR BRITTANIE
[2018-11-01 13:00] VITALS: BP 103/46
--- NOTE | 2018-11-01 15:58 | NUR ---
2ND MESSAGE LEFT WITH BRITTANIE, PT BENEFITS SPECIALIST RECRUITER
--- NOTE | 2018-11-01 16:22 | NUR ---
assessment Patient is a 62 year old male who resides at [facility] [phone]. I spoke to patient's caregiver at [facility] and he informed me patient can return home post discharge. Patient has good family support from his brother Felix. [place] [phone] is POA. Patient has an advance directive. Patient to return to the [facility] and [facility] post discharge. Per consult patient to return to [facility] and [facility]. Needs transportation set up. I have left a message for patients brother Felix to return my call. I have spoken to [facility] patients caregiver. Per [facility] he will try to get a hold of family to pick patient up. Per [facility] [phone] he will call back with ETA> Addendum: 11/01/18 at 1625 by Kathi CARR Amended: Links added.
--- NOTE | 2018-11-01 16:40 | NUR ---
CALL REC'D FROM SON MARIAELENA HIS SISTER IS EN ROUTE TO PRESSURE TESTER PT. HE REQUESTED WE HAVE PT PLACED IN WC
[2018-11-01 17:00] VITALS: BP 134/77
--- NOTE | 2018-11-01 17:23 | NUR ---
D/C Planning Per SS consult to return to board and care and to set up transport. Per SS Kathi Pt will be returning with Pablo who is Pt caregiver. Spoke to Pt brother Felix ph: ) and he informed me his mother will spanish moss picker Pt today 11/01/18 and she will take Pt to his caregiver Pablo.
--- NOTE | 2018-11-01 19:00 | NUR ---
DISCHARGE SISTER IS HERE. PT CLEANED OF LG AMT URINE. FED DINNER. DRESSED IN HIS CLOTHES AND ASSISTED TO WC. ABLE TO BEAR WT AND ASSIST IN TRANSFER TO CHAIR. DISCHARGE INSTRUCTIONS GIVEN AND UNDERSTOOD; QUESTIONS ANSWERED. ASSIST TO PRIVATE CAR AGAIN ABLE TO BEAR WT INTO PASSENGER SEAT AND SEAT BELT APPLIED.
== END 2018-11-01 19:00 | disposition home or self-care (01) | DRG 92 ==
LOC: ER 14:46 → EDBD 14:46 → TELE-EAST 14:47
PROVIDERS: ADMIT Internal Medicine; ATTEND Specialist
DX: G92 Toxic encephalopathy (principal); E46 Unspecified protein-calorie malnutrition; J44.0 Chronic obstructive pulmonary disease with (acute) lower respiratory infection; G93.1 Anoxic brain damage, not elsewhere classified; E87.0 Hyperosmolality and hypernatremia; I69.354 Hemiplegia and hemiparesis following cerebral infarction affecting left non-dominant side; R19.7 Diarrhea, unspecified; E86.1 Hypovolemia; I48.91 Unspecified atrial fibrillation; F09 Unspecified mental disorder due to known physiological condition; J20.9 Acute bronchitis, unspecified; R56.9 Unspecified convulsions; E87.8 Other disorders of electrolyte and fluid balance, not elsewhere classified; Z68.30 Body mass index [BMI] 30.0-30.9, adult; E78.5 Hyperlipidemia, unspecified; F03.90 Unspecified dementia, unspecified severity, without behavioral disturbance, psychotic disturbance, mood disturbance, and anxiety; F17.200 Nicotine dependence, unspecified, uncomplicated; I10 Essential (primary) hypertension; I25.2 Old myocardial infarction; K21.9 Gastro-esophageal reflux disease without esophagitis; Z80.0 Family history of malignant neoplasm of digestive organs; Z83.3 Family history of diabetes mellitus; Z86.74 Personal history of sudden cardiac arrest; Z79.82 Long term (current) use of aspirin; R00.1 Bradycardia, unspecified
CPT/HCPCS: 36415; 70450; 71045; 74176; 80048; 80053; 80307; 80320; 81001; 82607; 83036; 83605; 83735; 84484; 85025; 85610; 85730; 87040; 87081; 87086; 93005; 94761; 96360; 97110; 97116; 97163; 97530; G0378; J1956